=== PATIENT | female | born 1970 | race Caucasian/White ===

== ENCOUNTER → 2017-10-18 | Outpatient (CLI) | payer MEDICAID | LOC: CLAB 13:08 | PROVIDERS: ATTEND Family Medicine | DX: M25.561 Pain in right knee (principal); M25.461 Effusion, right knee | CPT/HCPCS: 73564-PO ==

== ENCOUNTER → 2018-05-04 | Outpatient (CLI) | payer MEDICAID | LOC: BRMIMAGING 14:01 | PROVIDERS: ATTEND Family Medicine | DX: Z12.31 Encounter for screening mammogram for malignant neoplasm of breast (principal) ==